=== PATIENT | female | born 1960 ===

== ENCOUNTER 2022-03-14 13:36 | Observation (INO) ==
[2022-03-14 14:57] LABS: ABS Eosinophils 0.1 10^3/ul (0-0.6); ABS Lymphocytes 2.7 10^3/ul (1.0-4.8); ABS Monocytes 0.6 10^3/ul (0-0.8); ABS Neutrophils 3.6 10^3/ul (1.5-7.7); Eosinophil % 1.2 %; Hematocrit 40 % (35-47); Hemoglobin 13.2 g/dL (12.0-16.0); Lymphocyte % 38.5 %; Mean Corpuscular HGB Conc 33 g/dL (31-36); Mean Corpuscular Hemoglobin 29 pg (27-31); Mean Corpuscular Volume 89 fL (80-97); Mean Platelet Volume 8.3 fL (7.4-10.4); Nucleated Red Blood Cells % 0.1; Platelet Count 252 10^3/uL (150-450); Red Blood Count 4.47 10^6 /uL (3.70-4.87); Red Cell Distribution Width 14 % (10-15)
[2022-03-14 15:39] LABS: TSH Ultra Thyroid Stim Horm 0.86 mcIU/mL (0.34-5.60)
[2022-03-14 15:48] LABS: Urine Appearance Cloudy; Urine Bilirubin Negative (Negative); Urine Blood Negative (Negative); Urine Color Yellow; Urine Glucose Negative (Negative); Urine Ketones Negative (Negative); Urine Nitrite Negative (Negative); Urine Protein Negative (Negative); Urine Specific Gravity 1.023 (1.002-1.030); Urine Urobilinogen Negative (Negative)
[2022-03-14 15:50] LABS: Urine Benzodiazepine Screen None Detected (None Detect); Urine Cannabinoids Screen None Detected (None Detect); Urine Opiates Screen None Detected (None Detect)
[2022-03-14 15:51] LABS: ALT 27 U/L (7-52); AST 22 U/L (13-39); Acetaminophen < 15 mcg/mL; Albumin 4.5 g/dL (3.2-5.2); Alcohol, S < 13 mg/dL (<13); Alkaline Phosphatase 76 U/L (35-149); Anion Gap 5 mmol/L (2-11); Blood Urea Nitrogen 12 mg/dL (6-24); CO2 Carbon Dioxide 29 mmol/L (22-32); Calcium 9.9 mg/dL (8.6-10.3); Chloride 103 mmol/L (101-111); Globulin 2.3 g/dL (2-4); Glucose 170 mg/dL (70-100); Potassium 4.6 mmol/L (3.5-5.0); Salicylate < 2.50 mg/dL (<30); Sodium 137 mmol/L (135-145); Total Protein 6.8 g/dL (6.4-8.9); eGFR CKD-EPI 87.7 (>60)
[2022-03-14] MEDS ORDERED: Albuterol HFA INHALER 8 gm MDI INH PRN (17:45)
[2022-03-14] MEDS ORDERED: Dextrose 50% Syringe 50 ml 25 GM/50 ML SYRINGE IV PUSH PRN (18:09)
[2022-03-15 14:48] VITALS: BP 138/68
== END 2022-03-15 17:50 | disposition home or self-care (01) ==
LOC: ED 13:36 → EDHOLD 13:36 → MEDTELE 03-15 03:14
PROVIDERS: ADMIT Internal Medicine; ATTEND Internal Medicine